=== PATIENT | female | born 1955 | race Hispanic/Latino ===

== ENCOUNTER 2025-08-08 14:30 | Emergency (ER) | payer MEDICARE, MEDICAID ==
[~2025-08-08] VITALS: Ht 162.6 cm; Wt 74.4 kg
[2025-08-08 15:49] LABS: APPEARANCE,URINE CLEAR (CLEAR); GLUCOSE, URINE (UA) NEGATIVE (NEGATIVE); IMMATURE GRANULOCYTE ABSOLUTE 0.01 K/uL (0-1); LEUKOCYTE ESTERASE ,URINE NEGATIVE Leu/uL (NEGATIVE); NITRATE,URINE NEGATIVE (NEGATIVE); NUCLEATED RED BLOOD CELLS 0.0 % (0.0-0.19); OCCULT BLOOD,URINE NEGATIVE (NEGATIVE); PLATELET COUNT (AUTO) 203 K/uL (130-400); RED BLOOD CELL COUNT(AUTO) 3.90 MIL/uL (4.00-5.50); RED CELL DISTRIBUTION WIDTH 15.8 % (11.0-15.5); WHITE BLOOD COUNT (AUTO) 4.9 K/uL (4.8-10.8)
[2025-08-08 15:51] LABS: ADD UA MICROSCOPIC NO
[2025-08-08 15:56] LABS: CREATININE 0.8 mg/dL (0.5-1.0); GLOMERULAR FILTR. RATE CALC 80.0 mL/min (>90); GLUCOSE,RANDOM 186.0 mg/dL (70-105); SODIUM SERUM 136.0 mmol/L (136-145); UREA NITROGEN, BLOOD 11.0 mg/dL (7-18)
[2025-08-08 16:01] LABS: ASPARTATE AMINOTRANSFERASE 12.0 U/L (10-37); TOTAL PROTEIN, SERUM 7.7 g/dL (6.0-8.3)
[2025-08-08 18:04] VITALS: BP 152/68; PULSE 70; RESP 16; TEMP 98.1; O2SAT 98
[2025-08-08] MEDS ORDERED: CYCL-309 PO (18:14)
[2025-08-08] MEDS ORDERED: KETO10TA2 PO (18:14)
--- NOTE | 2025-08-08 18:14 | ERN ---
General Chief Complaint: Flank Pain Stated Complaint: RIGHT FLANK PAIN Time Seen by MD: 15:22 Time Seen by Midlevel: 15:22 Source: patient History of Present Illness Initial Comments 70-year-old female presenting to the emergency department for evaluation of right flank pain that is worse in the morning. The pain started five days ago and has progressively worsened. She states pain started five days ago after she finished gardening outside. She reports a similar episode multiple years ago that was musculoskeletal in nature however she wanted to report to the ER to rule out other dangerous etiologies. He specifically denies any nausea, vomiting, diarrhea, dysuria, hematuria, or fever. Allergies: Coded Allergies: No Known Drug Allergies (Unverified Allergy, Unknown, 08/08/25) Past Medical History Past Medical History: Diabetes-Type II, High Cholesterol, Hypertension Past Surgical History: Other Surgical History Other: BREAST CANCER ROS Dictation CONSTITUTIONAL: Negative except for HPI HEAD/FACE: Negative except for HPI EENT: Negative except for HPI RESPIRATORY: Negative except for HPI GASTROINTESTINAL/ABDOMINAL: Negative except for HPI GENITOURINARY: Negative except for HPI MUSCULOSKELETAL: Negative except for HPI INTEGUMENTARY: Negative except for HPI NEUROLOGICAL/PSYCH: Negative except for HPI HEMATOLOGIC/LYMPHATIC: Negative except for HPI All Systems Negative, Except as noted above. 13 point review of systems assessed and all negative except for above. Physical Exam Physical Exam Dictation Vital Signs reviewed General Appearance: Alert, oriented x 3, no acute distress, well developed, nourished. Head and Face: non-traumatic. Eyes: PERRL, pink conjunctivas, eyelid no trauma, anterior chamber with arcus senilis. Ears: Pinnas intact and no signs of trauma or erythema ear canals clear and no discharge TM no erythema Nose: No discharge, no bleeding. Oropharynx: Mouth normal, tongue pink, pharynx clear,no erythema, tonsils no exudates, no abscesses noted, mucous membrane moist Neck: Supple, non-tender, no thyromegaly, no masses, no JVD, no bruits Breast:Deferred Chest:No tenderness, no crepitus, no paradoxical movement, no retractions Lungs:Clear, well-ventilated, symmetric, no rales, no wheezing, no rhonchi, no stridor, good breath sounds bilaterally Heart: Regular rate, regular rhythm, no murmur, no gallops Vascular: no peripheral edema, Abdomen: Soft, positive bowel sounds, nondistended, no guarding, nontender, no rebound, no masses no hepatomegaly, no splenomegaly, no Dalton's sign, no hernias. Rectal: Deferred Genital: Deferred Neurological: Normal speech, motor function intact, sensory function intact Musculoskeletal: Neck nontender, full range of motion, back nontender, full range of motion, Extremities: nontender, full range of motion Skin: Color pink, dry, no turgor, no rash, no lacerations, no abrasions, no contusions. Lymphatic: Deferred Results Laboratory and Microbiology Lab and Micro Result Laboratory Tests Test 08/08/25 15:39 White Blood Count 4.9 K/uL (4.8-10.8) Red Blood Count 3.90 MIL/uL (4.00-5.50) L Hemoglobin 12.3 g/dL (12.0-16.0) Hematocrit 36.1 % (36-48) Mean Corpuscular Volume 92.6 fL (79-99) Mean Corpuscular Hemoglobin 31.5 pg (27.0-33.0) Mean Corpuscular Hemoglobin Concent 34.1 g/dL (32.0-36.0) Red Cell Distribution Width 15.8 % (11.0-15.5) H Platelet Count 203 K/uL (130-400) Mean Platelet Volume 10.1 fL (7.5-10.5) Immature Granulocyte % (Auto) 0.2 % (0-1) Neutrophils (%) (Auto) 45.7 % (40.0-77.0) Lymphocytes (%) (Auto) 46.2 % (21.0-51.0) Monocytes (%) (Auto) 4.9 % (3.0-13.0) Eosinophils (%) (Auto) 2.0 % (0.0-8.0) Basophils (%) (Auto) 1.0 % (0.0-5.0) Neutrophils # (Auto) 2.3 K/uL (1.8-7.7) Lymphocytes # (Auto) 2.3 K/uL (1.0-4.8) Monocytes # (Auto) 0.2 K/uL (0.1-1.0) Eosinophils # (Auto) 0.10 K/uL (0.00-0.70) Basophils # (Auto) 0.05 K/uL (0.00-0.20) Absolute Immature Granulocyte (auto 0.01 K/uL (0-1) Nucleated Red Blood Cells 0.0 % (0.0-0.19) Urine Color COLORLESS (YELLOW) Urine Appearance CLEAR (CLEAR) Urine pH 6.0 (5.0-8.0) Urine Specific Ayden 1.002 (1.001-1.031) Urine Protein NEGATIVE mg/dL (NEGATIVE) Urine Glucose (UA) NEGATIVE mg/dL (NEGATIVE) Urine Ketones NEGATIVE mg/dL (NEGATIVE) Urine Occult Blood NEGATIVE (NEGATIVE) Urine Nitrate NEGATIVE (NEGATIVE) Urine Bilirubin NEGATIVE mg/dL (NEGATIVE) Urine Urobilinogen 0.2 mg/dL (0.2-1.0) Urine Leukocyte Esterase NEGATIVE Mihaela/uL Sodium Level 136 mmol/L (136-145) Potassium Level 3.8 mmol/L (3.5-5.1) Chloride Level 97 mmol/L (101-111) L Carbon Dioxide Level 33 mmol/L (21-32) H Blood Urea Nitrogen 11 mg/dL (7-18) Creatinine 0.8 mg/dL (0.5-1.0) Glomerular Filtration Rate Calc 80 mL/min (>90) Random Glucose 186 mg/dL (70-105) H Total Calcium 9.4 mg/dL (8.5-10.1) Total Bilirubin 0.4 mg/dL (0.2-1.0) Aspartate Amino Transf (AST/SGOT) 12 U/L (10-37) Alanine Aminotransferase (ALT/SGPT) 19 U/L (12-78) Alkaline Phosphatase 141 U/L (50-136) H Total Protein 7.7 g/dL (6.0-8.3) Albumin 3.6 g/dL (3.5-5.0) Lipase 38 U/L (16-77) Labs Reviewed?: Yes MDM MDM: Differential diagnosis: Pyelonephritis, UTI, musculoskeletal pain There are no social concerns with this patient. Prescription drug management Prescriptions will include: Ketorolac, Flexeril Medical management and examination interpretation discussions were had by me with other qualified healthcare professionals as indicated for the patient's care. ED Course Orders Procedure Category Date Status Time Cbc With Differential LAB 08/08/25 Complete 15:28 Urinalysis Profile LAB 08/08/25 Complete 15:28 Comprehensive LAB 08/08/25 Complete Metabolic Panel 15:28 Lipase LAB 08/08/25 Complete 15:28 Ketorolac PHA 08/08/25 Logged Tromethamine 15mg/Ml 18:30 Current Medications Medications (Trade) Dose Ordered Sig/Gilma Route PRN Reason Start Time Stop Time Status Last Admin Dose Admin Ketorolac Tromethamine (toRADol) 15 mg ONCE ONCE IV 08/08/25 18:30 08/08/25 18:31 UNV Vital Signs Date Time Temp Pulse Resp B/P (MAP) Pulse Ox O2 Delivery O2 Flow Rate FiO2 08/08/25 18:04 98.1 70 16 152/68 98 Room Air* 0 21 08/08/25 15:41 98.1 74 16 156/70 98 Room Air* 0 21 08/08/25 14:32 98.1 80 16 160/73 97 Room Air DX & DISP Disposition: Discharge Departure Impression: Primary Impression: Musculoskeletal pain Condition: Stable Scripts Cyclobenzaprine HCl (Cyclobenzaprine HCl) 10 Mg Tablet 1 TAB PO BID for muscle spasms for 7 Days, #14 TAB 0 Refills Prov: GILBERT NOEL 08/08/25 Ketorolac Tromethamine (Ketorolac Tromethamine) 10 Mg Tablet 1 TAB PO BID for pain for 5 Days, #10 TAB 0 Refills Prov: GILBERT NOEL 08/08/25 Additional Instructions: Your blood work today is unremarkable. Your kidney function is normal. Your white blood cell count is normal meaning an infection is unlikely. Your urinalysis does not show any evidence of infection. Your symptoms are consistent with a musculoskeletal pain. I have given you a prescription for ketorolac and Flexeril. Please follow up with your primary care doctor within the next week. If your symptoms persist or worsen please report to the ER for further evaluation. Referrals: SELF,REFERRAL (PCP) I have reviewed the case, and I agree with, Diagnosis and Plan I performed the substantive portion of the visit. I have reviewed and personally made and approve the management plan that is documented in the note by myself or the TONI. I acknowledge for responsibility for the patient's management plan. GILBERT NOEL Aug 08, 2025 18:14
== END 2025-08-08 18:28 | disposition home or self-care (01) ==
LOC: EDH 14:30
DX: R10.9 Unspecified abdominal pain (principal); E11.9 Type 2 diabetes mellitus without complications; E78.00 Pure hypercholesterolemia, unspecified; I10 Essential (primary) hypertension; Z85.3 Personal history of malignant neoplasm of breast
CPT/HCPCS: 99283; 96374; 80053; 83690; 85025; 81003; 36415; J1885